=== PATIENT | male | born 1945 | race African-American/Black ===

== ENCOUNTER 2025-01-16 08:57 | Emergency (ER) | payer MEDICARE ==
[~2025-01-16] VITALS: Ht 167.6 cm; Wt 51.5 kg
[2025-01-16] MEDS ORDERED: ARICEPT10 MG PO (09:23)
[2025-01-16] MEDS ORDERED: MIRTAZAPINE7.5 MG PO (09:23)
[2025-01-16 10:35] VITALS: PULSE 77; RESP 16; TEMP 98.3; O2SAT 99
== END 2025-01-16 10:35 | disposition home or self-care (01) ==
LOC: FSED 09:10
DX: N40.1 Benign prostatic hyperplasia with lower urinary tract symptoms (principal); R33.8 Other retention of urine; G30.9 Alzheimer's disease, unspecified; F02.80 Dementia in other diseases classified elsewhere, unspecified severity, without behavioral disturbance, psychotic disturbance, mood disturbance, and anxiety; Z87.19 Personal history of other diseases of the digestive system
CPT/HCPCS: 51700; 74176; 81003; 99284

== ENCOUNTER 2025-02-11 13:32 | Emergency (ER) | payer MEDICARE ==
[~2025-02-11] VITALS: Ht 167.6 cm; Wt 49.4 kg
[~2025-02-11 13:32] MED LIST: ARICEPT10 MG PO; MIRTAZAPINE7.5 MG PO
[2025-02-11] MEDS: SODIUM CHLORIDE 0.9% 1000ML 1,000 ML IV ONE (14:23)
[2025-02-11] MEDS: POTASSIUM CHLORIDE 20 MEQ TAB CR PO STA (14:40)
[2025-02-11] MEDS ORDERED: CEFDINIR300 MG PO (16:21)
[2025-02-11 16:44] VITALS: PULSE 89; RESP 14; TEMP 98.7; O2SAT 97
== END 2025-02-11 16:44 | disposition home or self-care (01) ==
LOC: FSED 13:38
DX: Z46.6 Encounter for fitting and adjustment of urinary device (principal); N40.1 Benign prostatic hyperplasia with lower urinary tract symptoms; R33.8 Other retention of urine; N39.0 Urinary tract infection, site not specified; G30.9 Alzheimer's disease, unspecified; F02.80 Dementia in other diseases classified elsewhere, unspecified severity, without behavioral disturbance, psychotic disturbance, mood disturbance, and anxiety; Z87.19 Personal history of other diseases of the digestive system
CPT/HCPCS: 51702; 80048; 81003; 85025; 99284; J0696; J7030; 51700